=== PATIENT | female | born 1995 | race Caucasian/White ===

== ENCOUNTER → 2016-11-14 | Outpatient (REF) | payer OTHER ==
[~2016-11-14] MED LIST: ACET50TA PO; MOTR200T44 PO
== END ==
LOC: M LAB REF 13:22
PROVIDERS: ATTEND Advanced Practice Midwife
DX: Z34.83 Encounter for supervision of other normal pregnancy, third trimester (principal)

== ENCOUNTER 2016-11-30 02:06 | Inpatient (IN) | payer OTHER ==
[~2016-11-30] VITALS: Ht 165.1 cm; Wt 85.0 kg
[2016-11-30] MEDS ORDERED: OXYTOCIN 30 UNITS IN 0.9% NaCl 500ML IV BAG (J2590) As Ordered ONE (05:51)
--- NOTE | 2016-11-30 06:11 | HPE ---
DATE OF ADMISSION: 11/30/2016 Shey is a 21-year-old, 3, para 1-0-1-1, at 39 weeks gestation with an estimated date of confinement (EDC) of 12/07/2016 based on last normal menstrual period and confirmed by first trimester ultrasound. She presents to labor and delivery today with report of uncomfortable contractions that started approximately at midnight and have progressively gotten closer together and more uncomfortable. She denies vaginal bleeding and leakage of fluid. Her fetus has been active. care initiated at [facility] in the first trimester. course complicated by tobacco use throughout and antepartal anemia. OBSTETRICAL HISTORY: April 2010, elective termination of . April 2014, spontaneous vaginal delivery of an 8 pound 10 ounce female at 39 weeks gestation. OB LABS: Blood type is A+, antibody screen negative, rubella immune. VDRL is nonreactive. Urine culture no growth. Hepatitis B surface antigen negative. HIV negative. Hepatitis C antibody nonreactive. Gonorrhea and chlamydia negative. She did decline all genetic serum screening markers. Gestational diabetic negative screening at 109 and GBS negative. PAST MEDICAL HISTORY: Negative. SURGERIES: None. Family history of thyroid dysfunction and asthma. SOCIAL HISTORY: The patient is single. However, the father of the baby is at bedside and supportive as well as family member. She was smoking throughout her . Denies alcohol and drug use. No history of any sexually transmitted infections and no history of abuse. She denies history of physical, sexual and emotional abuse. ALLERGIES: NO KNOWN DRUG ALLERGIES. CURRENT MEDICATIONS: Include: - ferrous sulfate 325 mg twice a day - vitamins OBJECTIVE: Temperature 98.4, pulse 100, respirations 16, blood pressure (BP) is 129/73. She is alert and oriented times three. She is deep breathing and focusing and appears uncomfortable with her contractions. heart rate is 120 with moderate variability. 10 x10 excels, positive early decelerations. She edilma approximately every 3-5 minutes. Sterile vaginal exam: 7 cm dilated, 80% effaced, -1 station with bulging bag of water. Her abdomen is gravid, cephalic presentation. Estimated weight about 8-8-1/2 pounds. ASSESSMENT: Intrauterine at 39 weeks gestation. heart rate category 1. Active labor. PLAN: Admit patient to labor and delivery. Out of bed ad tien. Clear liquid diet. Saline lock. The patient desires a normal physiological labor and will be encouraged to engage in out of bed position changes, hydrotherapy as desired. I do anticipate continued labor progress. I will consider assisted rupture of membranes to augment her labor, and I do anticipate a normal spontaneous vaginal delivery.
[2016-11-30] MEDS ORDERED: OXYTOCIN DRIP 30 UNITS in APPROPRIATE DILUENT 1 EA IV SCH (06:41)
[2016-11-30] MEDS ORDERED: MEASLES,MUMPS,RUBELLA VACCINE INJ (MMR-II) (90707) SC SCH (06:45)
[2016-11-30] MEDS ORDERED: DIBUCAINE 1% OINTMENT 30GM TOP PRN (06:45)
[2016-11-30] MEDS ORDERED: RHOGAM 300 MCG (1500 IU) INJ (J2790) IM SCH (06:45)
[2016-11-30] MEDS ORDERED: METHYLERGONOVINE MALEATE 0.2 MG TAB PO PRN (06:45)
[2016-11-30] MEDS ORDERED: DOCUSATE SODIUM 100 MG CAP PO PRN (06:45)
--- NOTE | 2016-11-30 07:06 | DN ---
DATE: 11/30/2016 Shey is a 21-year-old 3, para 2-0-1-2 now who was admitted to labor and delivery in active labor. She progressed throughout her labor physiologically and coped well. She was fully dilated at 0617 hours. She had assisted rupture of membranes for a small amount of light meconium-stained fluid at 0620 hours. She pushed to a normal spontaneous delivery of a live female in occiput anterior (OA) position with restitution to right occiput transverse (ROT) position at 0621 hours. There was a nuchal cord times one loose that was reduced manually at the time of delivery. was placed on maternal abdomen, crying and active, and the mouth and nares were bulb suctioned. The cord was clamped times two once pulsations ceased and cut by the father of the baby. A spontaneous expulsion of an intact placenta with three-vessel cord by Ott mechanism was at 0628 hours. Uterine hemostasis achieved with uterine fundal massage and IV Pitocin rapid infusion. Estimated blood loss 250 mL. Perineum and vagina were inspected and noted to have bilateral labial lacerations. The right labia was repaired with one interrupted suture. They were hemostatic. Otter female weighed 2950 grams, 6 pounds 8 ounces, scores 9 and 9. Mother is going to breastfeed her daughter. Family is undecided as to the 's name at this time. At the close of delivery, lap counts, instrument counts and needle counts were correct and verified. [facility]
[2016-11-30] MEDS: IBUPROFEN 800 MG TAB PO PRN ×2 (07:13→15:23)
[2016-11-30 07:42] LABS: MEAN CORPUSCULAR HGB CONC 33.1 g/dl (32.0-36.5); MEAN CORPUSCULAR VOLUME 93.9 fl (80.0-96.0); RED CELL DISTRIBUTION WIDTH 12.9 % (11.5-14.5); WHITE BLOOD COUNT 14.3 K/mm3 (4.0-10.0)
[2016-11-30] MEDS: PRENATAL VITAMIN TAB PO SCH (09:06)
[2016-11-30 10:34] VITALS: BP 117/56
[2016-11-30] MEDS: ACETAMINOPHEN 500 MG TAB PO PRN ×2 (13:21→19:48)
[2016-11-30 18:05] VITALS: BP 131/80
[2016-12-01] MEDS: IBUPROFEN 800 MG TAB PO PRN (03:52)
[2016-12-01 05:33] VITALS: BP 118/64
[2016-12-01] MEDS: PRENATAL VITAMIN TAB PO SCH (07:39)
[2016-12-01] MEDS ORDERED: PREN29TA4 PO (10:47)
[2016-12-01] MEDS ORDERED: IBUP-1114 PO (10:47)
[2016-12-01] MEDS ORDERED: ACET500C PO (10:47)
== END 2016-12-01 12:25 | disposition home or self-care (01) | DRG 560 ==
LOC: M LDO 02:06 → M LDI 05:38 → M OBS 10:12
PROVIDERS: ADMIT Advanced Practice Midwife; ATTEND Advanced Practice Midwife
PROC: 10E0XZZ Delivery of Products of Conception, External Approach (ICD-10-PCS; principal; 2016-11-30)
PROC: 0HQ9XZZ Repair Perineum Skin, External Approach (ICD-10-PCS; 2016-11-30)
PROC: 10907ZC Drainage of Amniotic Fluid, Therapeutic from Products of Conception, Via Natural or Artificial Opening (ICD-10-PCS; 2016-11-30)
DX: O99.02 Anemia complicating childbirth (principal); D64.9 Anemia, unspecified; Z3A.39 39 weeks gestation of pregnancy; O99.334 Smoking (tobacco) complicating childbirth; F17.210 Nicotine dependence, cigarettes, uncomplicated; O69.81X0 Labor and delivery complicated by cord around neck, without compression, not applicable or unspecified; O70.0 First degree perineal laceration during delivery; Z37.0 Single live birth

== ENCOUNTER → 2018-04-30 | Outpatient (CLI) | payer OTHER | LOC: M RAD 13:52 | DX: Z30.431 Encounter for routine checking of intrauterine contraceptive device (principal); N83.202 Unspecified ovarian cyst, left side | CPT/HCPCS: 76856 ==

== ENCOUNTER 2018-05-20 07:35 | Day surgery (SDC) | payer OTHER ==
[2018-05-20 08:09] LABS: HEMATOCRIT 42.9 % (36.0-47.0); HEMOGLOBIN 14.2 g/dl (12.0-15.5); MEAN CORPUSCULAR HEMOGLOBIN 30.5 pg (27.0-33.0); MEAN CORPUSCULAR HGB CONC 33.1 g/dl (32.0-36.5); MEAN CORPUSCULAR VOLUME 92.3 fl (80.0-96.0); PLATELET COUNT, AUTOMATED 198 10^3/uL (150-450); RED BLOOD COUNT 4.65 10^6/uL (4.00-5.40); RED CELL DISTRIBUTION WIDTH 11.8 % (11.5-14.5); WHITE BLOOD COUNT 8.1 10^3/uL (4.0-10.0)
[2018-05-20] MEDS: LR 1,000 ML IV (08:21)
[2018-05-20 08:30] LABS: CONTROL LINE HCG INT CTR LINE PRESENT; HCG, SERUM QUALITATIVE NEGATIVE (NEGATIVE)
[2018-05-20] MEDS: SCOPOLAMINE 1MG TRANSDERMAL PATCH TOP (09:25)
[2018-05-20] MEDS ORDERED: SCOPOLAMINE 1MG TRANSDERMAL PATCH As Ordered (09:32)
[2018-05-20] MEDS ORDERED: LIDOCAINE 2% INJ 100 MG/5 ML SDV (FOR ANES.) As Ordered (09:48)
[2018-05-20] MEDS ORDERED: ONDANSETRON 4MG/2ML VIAL (J2405) As Ordered (09:48)
[2018-05-20] MEDS ORDERED: KETOROLAC 60 MG/2 ML VIAL (J1885) As Ordered (09:48)
[2018-05-20] MEDS ORDERED: dexameTHASONE 4 MG/ML 1ML VIAL (J1100) As Ordered (09:48)
[2018-05-20] MEDS ORDERED: PROPOFOL 200 MG/20 ML VIAL As Ordered ×2 (09:48→12:34)
[2018-05-20] MEDS ORDERED: MIDAZOLAM INJ 2 MG/2 ML VIAL (J2250) As Ordered (09:49)
[2018-05-20] MEDS ORDERED: fentaNYL 100 MCG/2 ML INJECTION (J3010) As Ordered (09:50)
[2018-05-20] MEDS ORDERED: PHENYLephrine HCL 500 MCG/5 ML (100MCG/ML) SYRINGE (J2370) As Ordered (12:09)
[2018-05-20] MEDS: BUPIVACAINE HCL 0.25% 30 ML VIAL As Ordered (12:49)
[2018-05-20] MEDS ORDERED: GLYCOPYRROLATE INJ 0.2 MG/ML 2 ML VIAL As Ordered (12:49)
[2018-05-20] MEDS ORDERED: NEOSTIGMINE 10 MG/10 ML VIAL (J2710) As Ordered (12:49)
[2018-05-20] MEDS ORDERED: ROCURONIUM BROMIDE 50 MG/5 ML VIAL As Ordered (12:49)
[2018-05-20] MEDS: PERCOCET 5MG/325MG TAB PO (13:28)
[2018-05-20] MEDS ORDERED: HYDROMORPHONE HCL 0.5 MG/ 0.5 ML SYRINGE (J1170 PER 1) IV (13:30)
[2018-05-20] MEDS ORDERED: PERCOCET 5MG/325MG TAB PO (13:30)
[2018-05-20] MEDS ORDERED: fentaNYL 100 MCG/2 ML INJECTION (J3010) IV (13:30)
[2018-05-20] MEDS ORDERED: MEPERIDINE INJ 25 MG/ML VIAL (J2175) IV (13:30)
[2018-05-20] MEDS ORDERED: ONDANSETRON 4MG/2ML VIAL (J2405) IV (13:30)
[2018-05-20] MEDS ORDERED: LR 1,000 ML IV (13:30)
[2018-05-20] MEDS ORDERED: KETOROLAC 30 MG/ML VIAL (J1885) IV (16:00)
== END 2018-05-20 15:04 | disposition home or self-care (01) ==
LOC: M SDC 07:35
DX: T83.39XA Other mechanical complication of intrauterine contraceptive device, initial encounter (principal); X58.XXXA Exposure to other specified factors, initial encounter; Y93.89 Activity, other specified; Y92.89 Other specified places as the place of occurrence of the external cause; Y99.8 Other external cause status; D64.9 Anemia, unspecified; R29.898 Other symptoms and signs involving the musculoskeletal system; M24.462 Recurrent dislocation, left knee; Z72.0 Tobacco use
CPT/HCPCS: 58555

== ENCOUNTER → 2018-10-30 | Outpatient (REF) | payer OTHER ==
[~2018-10-30] MED LIST changes: +ACET500C PO; -ACET50TA PO; +IBUP-1114 PO; +IBUP200T45 PO; +MAPA500T2 PO; +PERCOCET PO; +PREN29TA4 PO; +TYLE500T78 PO
[2018-11-04 19:36] LABS: HPV HYBRID CAPTURE II Negative (Negative)
== END ==
LOC: M LAB REF 17:31
PROVIDERS: ATTEND Advanced Practice Midwife
DX: Z12.4 Encounter for screening for malignant neoplasm of cervix (principal); Z11.51 Encounter for screening for human papillomavirus (HPV); R87.610 Atypical squamous cells of undetermined significance on cytologic smear of cervix (ASC-US)

== ENCOUNTER → 2021-06-26 | Outpatient (REF) | payer OTHER ==
[~2021-06-26] MED LIST changes: -IBUP200T45 PO; +IBUP200T46 PO
== END ==
LOC: M SFHCWAGY 13:28
PROVIDERS: ATTEND Advanced Practice Midwife
DX: Z12.4 Encounter for screening for malignant neoplasm of cervix (principal)

== ENCOUNTER → 2023-11-13 | Outpatient (CLI) | payer OTHER ==
[2023-11-13 18:02] LABS: HIV 1&2 SCREEN NEGATIVE (NEGATIVE)
[2023-11-13 18:11] LABS: HEPATITIS B CORE ANTIBODY IGM NEGATIVE (NEGATIVE); HEPATITIS C VIRUS ABY INDEX 0.03 INDEX (<0.8)
[2023-11-13 19:15] LABS: Trichomonas vaginalis (AMP) NOT DETECTED (NEGATIVE)
[2023-11-13 19:39] LABS: GC DNA AMPLIFICATION NEGATIVE (NEGATIVE)
== END ==
LOC: M PLALAB 15:34
PROVIDERS: ATTEND Obstetrics & Gynecology
DX: Z11.3 Encounter for screening for infections with a predominantly sexual mode of transmission (principal); Z12.4 Encounter for screening for malignant neoplasm of cervix

== ENCOUNTER 2023-12-05 06:10 | Day surgery (SDC) | payer OTHER ==
[~2023-12-05] VITALS: Ht 162.6 cm; Wt 58.6 kg
[~2023-12-05 06:10] MED LIST changes: +ETON1VAG7; +LR 1,000 ML IV SCH
[2023-12-05] MEDS ORDERED: LR 1,000 ML IV SCH ×2 (06:20→08:30)
[2023-12-05 06:44] LABS: HEMATOCRIT 41.7 % (36.0-47.0); HEMOGLOBIN 13.8 g/dl (12.0-15.5); MEAN CORPUSCULAR HEMOGLOBIN 30.5 pg (27.0-33.0); MEAN CORPUSCULAR HGB CONC 33.1 g/dl (32.0-36.5); MEAN CORPUSCULAR VOLUME 92.3 fl (80.0-96.0); PLATELET COUNT, AUTOMATED 248 10^3/uL (150-450); RED BLOOD COUNT 4.52 10^6/uL (4.00-5.40); WHITE BLOOD COUNT 9.2 10^3/uL (4.0-10.0)
[2023-12-05] MEDS ORDERED: ONDANSETRON 4MG 2ML VIAL As Ordered ONE (07:06)
[2023-12-05] MEDS ORDERED: MIDAZOLAM INJ 2MG/2ML VIAL As Ordered ONE (07:06)
[2023-12-05] MEDS ORDERED: HYDROmorphone HCL 2MG/ML 1ML VIAL As Ordered ONE (07:06)
[2023-12-05] MEDS ORDERED: KETOROLAC 60MG 2ML VIAL As Ordered ONE (07:06)
[2023-12-05] MEDS ORDERED: fentaNYL 100 MCG/2 ML INJECTION As Ordered ONE (07:06)
[2023-12-05] MEDS ORDERED: propofoL 200 MG/20 ML VIAL As Ordered ONE (07:07)
[2023-12-05] MEDS ORDERED: ROCURONIUM BROMIDE 50MG/5ML VIAL As Ordered ONE (07:07)
[2023-12-05] MEDS ORDERED: ACETAMINOPHEN 1000MG 100ML IV BAG As Ordered ONE (07:07)
[2023-12-05] MEDS ORDERED: LIDOCAINE 2% 100MG/5ML SDV (FOR ANES.) As Ordered ONE (07:07)
[2023-12-05 07:13] LABS: HCG, SERUM QUALITATIVE NEGATIVE (NEGATIVE)
[2023-12-05] MEDS ORDERED: SUGAMMADEX SODIUM 500 MG/5 ML VIAL (BRIDION) As Ordered ONE (07:15)
[2023-12-05] MEDS ORDERED: fentaNYL 100 MCG/2 ML INJECTION IV PRN (08:30)
[2023-12-05] MEDS ORDERED: HYDROMORPHONE HCL 0.5 MG/ 0.5 ML SYRINGE IV PRN (08:30)
[2023-12-05] MEDS ORDERED: ONDANSETRON 4MG 2ML VIAL IV PRN (08:30)
[2023-12-05] MEDS ORDERED: PERC5TAB12 PO (08:39)
[2023-12-05] MEDS ORDERED: IBUP1TAB7 PO (08:40)
[2023-12-05] MEDS ORDERED: COLA100C5 PO (08:40)
[2023-12-05] MEDS: oxyCODONE 5MG TAB PO PRN (08:59)
[2023-12-05 10:45] VITALS: BP 110/70; TEMP 97.5; O2SAT 100
== END 2023-12-05 11:05 | disposition home or self-care (01) ==
LOC: M SDC 06:10
PROVIDERS: ATTEND Obstetrics & Gynecology
DX: Z30.2 Encounter for sterilization (principal); F17.210 Nicotine dependence, cigarettes, uncomplicated; F17.290 Nicotine dependence, other tobacco product, uncomplicated
CPT/HCPCS: 36415; 58661; 84703; 85027; 86850; 86900; 86901; 88302; J0131; J0665; J1100; J1170; J1885; J2250; J2405; J3010

== ENCOUNTER → 2025-01-25 | Outpatient (CLI) | payer OTHER ==
[~2025-01-25] MED LIST changes: +COLA100C5 PO; +IBUP1TAB7 PO; -LR 1,000 ML IV SCH; +PERC5TAB12 PO
== END ==
LOC: M PLAIMG 11:57
PROVIDERS: ATTEND Orthopaedic Surgery Hand Surgery
DX: S83.006A Unspecified dislocation of unspecified patella, initial encounter (principal); W18.30XA Fall on same level, unspecified, initial encounter; Y92.009 Unspecified place in unspecified non-institutional (private) residence as the place of occurrence of the external cause

== ENCOUNTER 2025-07-17 18:14 | Emergency (ER) | payer OTHER ==
[~2025-07-17] VITALS: Ht 165.1 cm; Wt 72.0 kg
[2025-07-17 18:56] LABS: BASO # 0.1 10^3/uL (0.0-0.2); BASO % 0.7 % (0.0-1.0); EOS # 0.3 10^3/uL (0.0-0.5); EOS % 2.5 % (0.0-3.0); LYMPH # 3.4 10^3/uL (1.5-5.0); LYMPH % 27.5 % (24.0-44.0); MONO # 0.9 10^3/uL (0.0-0.8); MONO % 7.5 % (2.0-8.0); NEUTROPHILS # 7.7 10^3/uL (1.5-8.5); NEUTROPHILS % 61.6 % (36.0-66.0); PLATELET COUNT, AUTOMATED 222 10^3/uL (150-450)
[2025-07-17 19:22] LABS: CALCIUM LEVEL 9.0 MG/DL (8.5-10.1); CARBON DIOXIDE LEVEL 25 MMOL/L (20-31); CHLORIDE LEVEL 107 MMOL/L (98-107); CK-MB VALUE MASS < 1.0 NG/ML (<3.6); CPK CREATINE PHOSPHOKINASE 60 U/L (34-145); CREATININE FOR GFR 0.73 MG/DL (0.55-1.30); GLOMERULAR FILTRATION RATE > 90.0 (>60); POTASSIUM SERUM 3.4 MMOL/L (3.5-5.1); SODIUM LEVEL 140 MMOL/L (136-145)
[2025-07-17] MEDS: METHOCARBAMOL 1,000 MG/10 ML VIAL IV ONE (19:41)
[2025-07-17] MEDS: KETOROLAC 30 MG/ML 1 ML VIAL IV ONE (19:42)
[2025-07-17 21:15] VITALS: BP 104/61; O2SAT 98
[2025-07-17 21:18] LABS: CK-MB VALUE MASS < 1.0 NG/ML (<3.6); CPK CREATINE PHOSPHOKINASE 64 U/L (34-145)
[2025-07-17 21:36] VITALS: TEMP 98.9
== END 2025-07-17 21:38 | disposition home or self-care (01) ==
LOC: M ED 18:14
DX: S29.011A Strain of muscle and tendon of front wall of thorax, initial encounter (principal); R00.0 Tachycardia, unspecified; Y92.9 Unspecified place or not applicable; Y93.9 Activity, unspecified; Y99.9 Unspecified external cause status; Z79.1 Long term (current) use of non-steroidal anti-inflammatories (NSAID); Z79.899 Other long term (current) drug therapy
CPT/HCPCS: 36415; 71045; 80048; 82550; 82553; 84484; 85025; 93005; 93041; 94760; 96374; 96375; 99285; J1885; J2800